=== PATIENT | female | born 1950 | race Caucasian/White ===

== ENCOUNTER 2020-04-27 10:48 | Emergency (ER) | payer MEDICARE, MEDICAID, SELFPAY ==
[2020-04-27 10:52] VITALS: BP 199/77; PULSE 97; RESP 18; TEMP 36.7; O2SAT 97
[2020-04-27 11:03] VITALS: BP 165/71
--- NOTE | 2020-04-27 11:31 | ED.GENADUL_ITS ---
Discharge Plan Disposition Patient Disposition: HOME Condition: Stable Discharge Details Chief Complaint: Laceration Clinical Impression: Laceration of leg Primary Care Provider: Von Gallegos ED Provider: Dougie Carlin Home Meds and New Rx's Prescriptions: Continued omeprazole 10 mg Capsule,Delayed Release(Dr/Ec) 10 mg PO DAILY RF: 0 Trelegy Ellipta 100-62.5-25 mcg Blister With Device 1 inh INHALATION DAILY RF: 0 Discharge Instructions Instructions: Laceration (ED) Additional Instructions: Keep the wound clean and dry. You may change antibiotic dressing daily. Rest, elevate, cool compresses every 2 hours for 20 minutes. Please watch for new or worsening symptoms and return to the ER for any concerns. I do recommend having the sutures removed in approximately 14 days. [id number] medications as directed for symptomatic control. Medical Decision Making 69-year-old female presents after a slip up the stairs striking her leg upon the stair sustaining a laceration. Denies striking her head or any other injuries. Denies numbness, tingling, weakness. Patient is able to bear weight. The laceration does not reveal any obvious foreign body or active bleeding. Tetanus status is not up-to-date. Will update tetanus today. Tetanus updated Laceration repaired, please see procedural note Laceration was then again cleaned and dressed. Patient was able to ambulate steadily. HPI General Mode of arrival: ambulatory . Date/Time Provider Initiated Documentation: 04/27/20 11:10 . Limitations to Documentation: no limitations . Information obtained by: patient . HPI Narrative: 69-year-old female who denies significant past medical history, presents for laceration of the left lower leg. She was walking up the stairs, missed a step, striking her leg directly against the stair edge. Reports the pain is mild at rest moderate with movement or bearing weight. Denies any other injury. Denies numbness, tingling, weakness. She is unaware of her last tetanus shot. She did not strike her head Related Data Home Medications Medication Instructions Recorded Confirmed Trelegy Ellipta 1 inh INHALATION DAILY 04/27/20 04/27/20 omeprazole 10 mg PO DAILY 04/27/20 04/27/20 Allergies Allergy/AdvReac Type Severity Reaction Status Date / Time No Known Allergies Allergy Unverified 04/27/20 11:17 General Stated Complaint: Laceration ROB: 3 Review of Systems Constitutional Constitutional: Denies headache(s) and Denies weakness ENT Ears, Nose, Mouth, and Throat: Denies headache(s) Musculoskeletal Musculoskeletal: Denies arthralgias, Denies numbness and Denies tingling Neurologic Neurologic: Denies headache(s), Denies numbness, Denies tingling and Denies weakness Exam Const General: cooperative, healthy appearing, comfortable and no acute distress Orientation: alert and awake HENPA Head: normal to inspection, normocephalic and atraumatic Mouth: moist mucous membranes Eyes Conjunctivae: conjunctivae normal Neck Neck: normal visual inspection, trachea midline and supple Resp Effort & Inspection: normal respiratory effort and able to speak in complete sentences Cardio Rate: regular rate Rhythm: regular rhythm Skin General skin exam: no rashes or lesions noted Neuro General: patient alert, patient awake, moves all extremities and no focal motor deficits Sensory Exam: no sensory deficits noted Extrem Upper/lower leg/hip images: 1. 9 cm V-shaped laceration. No active bleeding. No obvious foreign body. There is diffuse mild local discomfort to palpation associated with some ecchymosis. Neuro, vascular, tendon intact. Psych Appearance: grossly normal Mental Status: mental status grossly normal Course Vital Signs Vital signs: Vital Signs Temperature 36.7 C 04/27/20 10:52 Pulse 97 H 04/27/20 10:52 Respiratory Rate 18 04/27/20 10:52 Blood Pressure 199/77 H 04/27/20 10:52 Pulse Oximetry 97 04/27/20 10:52 Temperature 36.7 C 04/27/20 10:52 Temperature Source Skin 04/27/20 10:52 Pulse 97 H 04/27/20 10:52 Respiratory Rate 18 04/27/20 10:52 Respiratory Effort 04/27/20 11:00 Blood Pressure 165/71 H 04/27/20 11:03 Blood Pressure Position Sitting 04/27/20 10:52 Pulse Oximetry 97 04/27/20 10:52 Oxygen Delivery Method Room Air 04/27/20 10:52 Oxygen Flow Rate 0 04/27/20 10:52 Pain Level 4 04/27/20 11:20 Comment 04/27/20 10:52 Procedures Laceration Laceration 1: Site: lower extremity Side (If applicable): left Size (cm): 9 Description: other (V-shaped) Depth: simple, single layer Local Anesthetic: Lidocaine 2% and with Epi Amount of anesthesia used (mL): 8 Pre-repair: wound explored, irrigated extensively and deep structures intact Skin layer closed with: nylon Size (cm): 4-0 Number of sutures: 18 Technique: simple, interrupted
[2020-04-27] MEDS: Bacitracin 1 PACKET (12:40)
== END 2020-04-27 12:31 | disposition home or self-care (01) ==
PROVIDERS: Emergency Provider Physician Assistant; PCP Family Medicine
DX: S81.812A Laceration without foreign body, left lower leg, initial encounter (principal); W22.09XA Striking against other stationary object, initial encounter
CPT/HCPCS: 12004; 90471

== ENCOUNTER 2020-05-11 09:46 | Emergency (ER) | payer MEDICARE, MEDICAID, SELFPAY ==
[2020-05-11 09:50] VITALS: BP 157/89; PULSE 90; RESP 16; TEMP 35.9; O2SAT 97
--- NOTE | 2020-05-11 09:50 | ED.GENADUL_ITS ---
Discharge Plan Disposition Patient Disposition: HOME Condition: Good Discharge Details Chief Complaint: SutureRem Clinical Impression: Encounter for removal of sutures Primary Care Provider: Von Gallegos ED Provider: Lisette Wahl Home Meds and New Rx's Prescriptions: Continued omeprazole 10 mg Capsule,Delayed Release(Dr/Ec) 10 mg PO DAILY RF: 0 Trelegy Ellipta 100-62.5-25 mcg Blister With Device 1 inh INHALATION DAILY RF: 0 Discharge Instructions Instructions: Laceration (ED) Additional Instructions: She wound appears to be healing well. Sutures removed. Please continue to monitor wound for signs of infection bleeding redness, warmth, drainage, increased pain, fever/chills. If you develop these or other new/worsening s ymptoms please seek care urgently once again. Otherwise, please continue with the measures you have already been using to promote optimal wound healing. Referrals: Von Gallegos [Primary Care Provider] - Medical Decision Making Patient presents today for suture removal. He has been 14 days and sutures backslash left anterior tibia. Wound appears to be healing well without signs of infection. I do feel that sutures are able to be removed at this point. #18 sutures removed by myself. I did reinforce the wound again with Steri-Strips. W e discussed wound care again. Discussed the signs symptoms of infection to seek care urgently once again. Advise follow-up with primary if she has any questions or concerns regarding wound healing. All of her questions and concerns were addressed and she is in agreement this plan. HPI General Mode of arrival: ambulatory . Date/Time Provider Initiated Documentation: 05/11/20 09:50 . Limitations to Documentation: no limitations . Information obtained by: patient and RN notes reviewed . History of Present Illness 69 year old F presents to the emergency department with the chief c omplaint of suture removal, described as mild (feels that wound is healing well, no pain at this time), and is localized to the left and lower extremity. Patient reports no radiation. Patient started experiencing this week(s) (2) and it has been now resolved. No relieving factors improve symptom(s), No exacerbating factors reported . Patient notes no other symptoms.. Patient did receive the following treatments prior to arrival, other (sutures placed 2 weeks ago) Related Data Home Medications Medication Instructions Recorded Confirmed Trelegy Ellipta 1 inh INHALATION DAILY 04/27/20 05/11/20 omeprazole 10 mg PO DAILY 04/27/20 05/11/20 Allergies Allergy/AdvReac Type Severity Reaction Status Date / Time No Known Allergies Allergy Unverified 05/11/20 09:53 General ROB: 3 Review of Systems Constitutional Constitutional: Reports as per HPI, Denies chills, Denies fever(s) and Denies weakness Musculoskeletal Musculoskeletal: Reports as per HPI and Denies tingling Integumentary/Breasts Skin/Breast: Reports as per HPI Neurologic Neurologic: Denies sensory deficit, Denies tingling and Denies weakness [facility] Social History Do you feel safe at home: Yes Do you feel safe in your relationship?: Yes Exam Const General: cooperative, healthy appearing, comfortable, no acute distress and well developed Nutritional Appearance: average body habitus and well nourished Orientation: alert and awake Resp Effort & Inspection: normal respiratory effort, able to speak in complete sentences and no respiratory distress Cardio Rate: regular rate Rhythm: regular rhythm Skin Trauma: laceration (as below) Neuro General: patient alert and patient awake Cognition: normal cognition Speech: speech normal Gait: normal gait Motor: muscle tone normal throughout Extrem Upper/lower leg/hip images: 1. Wound appears to be healing well with no surrounding erythema, warmth drainage. Scab along suture edges. Psych Appearance: grossly normal and well kempt Mental Status: mental status grossly normal Speech and Movement: speech and movement normal
== END 2020-05-11 10:09 | disposition home or self-care (01) ==
PROVIDERS: Emergency Provider Physician Assistant; PCP Family Medicine
DX: S81.812D Laceration without foreign body, left lower leg, subsequent encounter (principal); W22.09XD Striking against other stationary object, subsequent encounter; Z48.02 Encounter for removal of sutures

== ENCOUNTER 2020-09-24 09:05 | Day surgery (SDC) | payer MEDICARE, MEDICAID, SELFPAY ==
[2020-09-24] MEDS: Tropicam./Phenyleph. (1/2.5%) 5 ML BTL OD ×3 (10:19→10:31)
[2020-09-24 10:20] VITALS: BP 139/85; PULSE 79; RESP 24; TEMP 36.4; O2SAT 95
[2020-09-24] MEDS: Povidone-Iodine Ophth 30 ML BTL ×2 (11:13→11:37)
[2020-09-24] MEDS: Tetracaine 0.5% 4 ML BTL OD (11:13)
[2020-09-24] MEDS: Lidocaine 2% Jelly 6 ML SYR (11:13)
[2020-09-24] MEDS: Lidocaine 1% Pres-Free 5 ML VIAL (11:19)
[2020-09-24] MEDS: Balanced Salt Soln.-PLUS 500 ML BAG (11:19)
[2020-09-24] MEDS: Duovisc Viscoelastic System EACH 1 EACH (11:19)
--- NOTE | 2020-09-24 11:44 | ROE_ITS ---
Date of service: 09/24/20 Time of Service: 11:44 Operative Note Operative Note DATE OF PROCEDURE: 09/24/20 PRE-OP DIAGNOSIS: Nuclear cataract, right eye POST-OP DIAGNOSIS: same PROCEDURE: Cataract extraction using phacoemulsification with intraocular lens implant, right eye SURGEON: Damon Cuevas ANESTHESIA: MAC and local (sub-tenon's anesthetic infiltration) ESTIMATED BLOOD LOSS: 0 PATHOLOGY: none sent COMPLICATIONS: None Patient was transported to: same day Patient's condition: stable Implants: [employer] / [employer] Tecnis ZCB00 intr aocular lens Indications: Progressive decreased vision due to cataract, right eye Procedure Description: CATARACT SURGERY OPERATIVE REPORT PREOPERATIVE DIAGNOSIS: Nuclear cataract, right eye POSTOPERATIVE DIAGNOSIS: Same OPERATION: Cataract extraction using phacoemulsification with posterior chamber intraocular lens implant, right eye. IOL: IOL Health Policy Nurse/Model: [employer] Vision / SHERYL Tecnis ZCB00 IOL Power: + 21.50 diopters IOL Serial Number: [id number] Optic Diameter: 6.0mm Haptic/Overall Diameter: 13.0mm PHACO INFO: [employer]urion Vision System with OZil and Active Fluidics Cumulative Dispersed Energy (CDE): 13.82 seconds SURGEON: Damon Cuevas MD, KENDRICK ANESTHESIA: Monitored Anesthesia Care (MAC), with local sub-tenon's anesthetic infiltration COMPLICATIONS: None SPECIMENS: None INDICATIONS FOR PROCEDURE: The patient is a 69-year-old lady with history of diminished visual acuity in her right eye. She is noted to have a significant nuclear cataract in the right eye. The option of cataract surgery was offered to the patient and she wished to proceed. PROCEDURE: The correct surgical eye was identified and marked as the right eye and the pupil was dilated in the preoperative area using mydriatics and cycloplegics. The dilated pupil size was 6.5 mm. Oral sedation was administered in the form of an Imprimis MKO Melt (midazolam 3mg/ketamine 25mg/ondansetron 2mg). The patient was brought to the operating room where cardiopulmonary monitoring was instituted and surgical time-out was performed, confirming the correct operative eye and IOL power. Topical anesthesia was administered and ophthalmic povidone-iodine 5% was inst illed into the conjunctival fornices. Lidocaine gel was applied to the cornea and the isabella-ocular area was prepped with Betadine 10% solution and draped in the usual sterile fashion for intraocular surgery, including an aperture drape. A Tegaderm transparent film dressing was cut in half and used to cover the lashes and lid margins. Care was taken to sequester the lashes and lid margins under the Tegaderm dressing. A lid speculum was placed between the lids of the operative eye and the Jude-Elie operating microscope was maneuvered into position. Roderick scissors were then used to make a conjunctival buttonhole approximately 6mm posterior to the limbus in the inferonasal quadrant. Blunt dissection was carried out to expose bare sclera, and a blunt-tipped sub-tenon?s anesthesia cannula was introduced and passed posteriorly along the globe where non- preserved plain lidocaine was injected into posterior sub-Tenon?s space. A sideport knife was used to make a paracentesis port inferiortemporally. Intraocular phenylephrine/lidocaine was injected into the anterior chamber. The anterior chamber was then filled with viscoelastic. A 2.4mm keratome knife was used to create a half-thickness groove at the limbus and then to construct a three-plane near-clear corneal tunnel extending 2.0mm into clear cornea in the superiortemporal position. . A flap was raised on the anterior capsule and capsulorhexis forceps were used to complete a continuous curvilinear capsulorhexis of 5.0 mm. Balanced salt solution was then used to perform cortical cleaving hydrodissection and nuclear hydrodelineation until the lens could be freely rotated within the capsular bag. The lens nucleus was then disassembled and removed within the capsular bag and iris plane using phacoemulsification. Res idual cortical material was removed using the I/A handpiece. The posterior capsule was carefully polished to remove as much residual lens epithelial cells as safely possible. The capsular bag was then inflated and the anterior chamber deepened with viscoelastic. The lens implant described above was inserted into the capsular bag using the SHERYL [place] Injector. A Kuglen hook was used to dial the IOL into position. Residual viscoelastic was then removed first from posterior to the IOL, then from the anterior chamber using the I/A handpiece. The lens implant was noted to center nicely within the capsular bag. The incisions were stromally hydrated, and the anterior chamber was reformed using BSS. Then 0.1cc of moxifloxacin 5.0mg/ml were injected into the capsular bag and anterior chamber. The incisions were checked with a Weck spear and found to be secure. Several drops of ophthalmic povidone-iodine 5% were then applied to the eye followed by two drops of Imprimis combination prednisolone/moxifloxacin/nepafenac solution. The drapes were removed and a clear plastic protective eye shield was placed over the eye. The patient was then returned to Same Day Surgery in stable condition.
--- NOTE | 2020-09-24 11:44 | PDOC.DSDIS_ITS ---
Discharge Plan Discharge Details Attending Provider: Damon Cuevas Primary Care Provider: Von Gallegos [place] Meds and New Rx's Prescriptions: No Action Trelegy Ellipta 100-62.5-25 mcg Blister With Device 1 inh INHALATION DAILY RF: 0 nystatin 100,000 unit/mL Suspension 5 ml PO QID RF: 0 ipratropium-albuterol 0.5 mg-3 mg(2.5 mg base)/3 mL Solution For Nebulization 3 ml INHALATION Q4H RF: 0 magnesium oxide 400 mg (241.3 mg magnesium) Tablet 400 mg PO DAILY RF: 0 albuterol sulfate [Ventolin HFA] 90 mcg/actuation Hfa Aerosol Inhaler 2 puff INHALATION QID PRNRF: 0 naproxen 500 mg Tablet 500 mg PO BID RF: 0 omeprazole 20 mg Tablet,Delayed Release (Dr/Ec) 20 mg PO DAILY RF: 0 halobetasol propionate 0.05 % Ointment 1 applic TOPICAL DIRECTED RF: 0 Discharge Instructions Stand Alone Forms: Post-op Topical Cataract DS: Diagnosis Discharge Diagnosis (1) Nuclear sclerotic cataract of right eye: Status: Resolved
[2020-09-24 12:12] VITALS: BP 142/64; PULSE 84; RESP 20; TEMP 36.4; O2SAT 93
== END 2020-09-24 12:15 ==
LOC: SUR 09:05
PROVIDERS: PCP Family Medicine; Visit Provider Ophthalmology
PROC: (CPT 66984; principal; 2020-09-24 11:45)
DX: H25.11 Age-related nuclear cataract, right eye (principal); J44.9 Chronic obstructive pulmonary disease, unspecified; Z99.81 Dependence on supplemental oxygen; K21.9 Gastro-esophageal reflux disease without esophagitis
CPT/HCPCS: 66984; V2632

== ENCOUNTER 2020-10-08 06:11 | Day surgery (SDC) | payer MEDICARE, MEDICAID, SELFPAY ==
[2020-10-08 06:20] VITALS: BP 132/71; PULSE 75; RESP 22; TEMP 36.4; O2SAT 93
[2020-10-08] MEDS: Tropicam./Phenyleph. (1/2.5%) 5 ML BTL OS ×3 (06:37→06:48)
[2020-10-08] MEDS: Povidone-Iodine Ophth 30 ML BTL (07:27)
[2020-10-08] MEDS: Tetracaine 0.5% 4 ML BTL OS (07:28)
[2020-10-08] MEDS: Lidocaine 2% Jelly 6 ML SYR (07:28)
[2020-10-08] MEDS: Balanced Salt Soln.-PLUS 500 ML BAG (07:31)
[2020-10-08] MEDS: Duovisc Viscoelastic System EACH 1 EACH (07:31)
[2020-10-08] MEDS: Lidocaine 1% Pres-Free 5 ML VIAL (07:31)
--- NOTE | 2020-10-08 07:55 | W.PM.DSUDISC ---
Discharge Plan Disposition Patient Disposition: HOME Condition: Good Discharge Details Attending Provider: Damon Cuevas Primary Care Provider: Von Gallegos [place] Meds and New Rx's Prescriptions: No Action Trelegy Ellipta 100-62.5-25 mcg Blister With Device 1 inh INHALATION DAILY RF: 0 ipratropium-albuterol 0.5 mg-3 mg(2.5 mg base)/3 mL Solution For Nebulization 3 ml INHALATION Q4H RF: 0 magnesium oxide 400 mg (241.3 mg magnesium) Tablet 400 mg PO DAILY RF: 0 albuterol sulfate [Ventolin HFA] 90 mcg/actuation Hfa Aerosol Inhaler 2 puff INHALATION QID PRNRF: 0 naproxen 500 mg Tablet 500 mg PO BID RF: 0 omeprazole 20 mg Tablet,Delayed Release (Dr/Ec) 20 mg PO DAILY RF: 0 halobetasol propionate 0.05 % Ointment 1 applic TOPICAL DIRECTED RF: 0 Discharge Instructions Stand Alone Forms: Post-op Topical Cataract, [place] ([facility]) Discharge Orders Discharge Orders: Discharge Order (Routine); Ordered 10/08/20 Ordered By: Damon Cuevas DS: Diagnosis Discharge Diagnosis (1) Nuclear sclerotic cataract of left eye: Status: Resolved
--- NOTE | 2020-10-08 07:56 | W.PM.OP ---
Date of service: 10/08/20 Time of Service: 07:57 Operative Note Operative Note DATE OF PROCEDURE: 10/08/20 PRE-OP DIAGNOSIS: Nuclear cataract, left eye POST-OP DIAGNOSIS: same PROCEDURE: Cataract extraction using phacoemulsification with intraocular lens implant, left eye SURGEON: Damon Cueavs ANESTHESIA: MAC and local (sub-tenon's anesthetic infiltration) PATHOLOGY: none sent COMPLICATIONS: None Patient was transported to: same day Patient's condition: stable Implants: [employer] / [employer] Tecnis ZCB00 Indications: Progressive decreased vision due to cataract, left eye Procedure Description: CATARACT SURGERY OPERATIVE REPORT PREOPERATIVE DIAGNOSIS: Nuclear cataract, left eye POSTOPERATIVE DIAGNOSIS: Same OPERATION: Cataract extraction using phacoemulsification with posterior chamber intraocular lens implant, left eye. IOL: IOL Wader Boot Top Assembler/Model: J&J Vision / SHERYL Tecnis ZCB00 IOL Power: + 21.50 diopters IOL Serial Number: [id number] Optic Diameter: 6.0mm Haptic/Overall Diameter: 13.0mm PHACO INFO: Bob [employer] Mobile [employer] Vision System with OZil and Active Fluidics Cumulative Dispersed Energy (CDE): 10.73 seconds SURGEON: Damon Cuevas MD, KENDRICK ANESTHESIA: Monitored Anesthesia Care (MAC), with local sub-tenon's anesthetic infiltration COMPLICATIONS: None SPECIMENS: None INDICATIONS FOR PROCEDURE: The patient is a 69-year-old lady with history of diminished visual acuity and both eyes secondary to the development of bilateral nuclear cataracts. The option of cataract surgery was offered to the patient and she wished to proceed. She has already undergone cataract surgery in the right eye and is doing well postoperatively. She now presents for cataract surgery of the left eye. PROCEDURE: The correct surgical eye was identified and marked as the left eye and the pupil was dilated in the preoperative area using mydriatics and cycloplegics. The dilated pupil size was 7.0 mm. Oral sedation was administered in the form of an Imprimis MKO Melt (midazolam 3mg/ketamine 25mg/ondansetron 2mg). The patient was brought to the operating room where cardiopulmonary monitoring was instituted and surgical time-out was performed, confirming the correct operative eye and IOL power. Topical anesthesia was administered and ophthalmic povidone-iodine 5% was instilled into the conjunctival fornices. Lidocaine gel was applied to the cornea and the isabella-ocular area was prepped with Betadine 10% solution and draped in the usual sterile fashion for intraocular surgery, including an aperture drape. A Tegaderm transparent film dressing was cut in half and used to cover the lashes and lid margins. Care was taken to sequester the lashes and lid margins under the Tegaderm dressing. A lid speculum was placed between the lids of the operative eye and the Jude-Elie operating microscope was maneuvered into position. Roderick scissors were then used to make a conjunctival buttonhole approximately 6mm posterior to the limbus in the inferonasal quadrant. Blunt dissection was carried out to expose bare sclera, and a blunt-tipped sub-tenon?s anesthesia cannula was introduced and passed posteriorly along the globe where non-preserved plain lidocaine was injected into posterior sub-Tenon?s space. A sideport knife was used to make a paracentesis port superior/superiortemporally. Intraocular phenylephrine/lidocaine was injected into the anterior chamber. The anterior chamber was then filled with viscoelastic. A 2.4mm keratome knife was used to create a half-thickness groove at the limbus and then to construct a three-plane near-clear corneal tunnel extending 2.0mm into clear cornea in the temporal position. . A flap was raised on the anterior capsule and capsulorhexis forceps were used to complete a continuous curvilinear capsulorhexis of 5.0 mm. Balanced salt solution was then used to perform cortical cleaving hydrodissection and nuclear hydrodelineation until the lens could be freely rotated within the capsular bag. The lens nucleus was then disassembled and removed within the capsular bag and iris plane using phacoemulsification. Residual cortical material was removed using the 45-degree angled silicone I/A tip with 0.3mm port. The posterior capsule was carefully polished to remove as much residual lens epithelial cells as safely possible. The capsular bag was then inflated and the anterior chamber deepened with viscoelastic. The lens implant described above was inserted into the capsular bag using the SHERYL [place] Injector. A Kuglen hook was used to dial the IOL into position. Residual viscoelastic was then removed first from posterior to the IOL, then from the anterior chamber using the I/A handpiece. The lens implant was noted to center nicely within the capsular bag. The incisions were stromally hydrated, and the anterior chamber was reformed using BSS. Then 0.5cc of moxifloxacin 1.0mg/ml were injected into the capsular bag and anterior chamber. The incisions were checked with a Weck spear and found to be secure. Several drops of ophthalmic povidone-iodine 5% were then applied to the eye followed by two drops of Imprimis combination prednisolone/moxifloxacin/nepafenac solution. The drapes were removed and a clear plastic protective eye shield was placed over the eye. The patient was then returned to Same Day Surgery in stable condition.
[2020-10-08 08:19] VITALS: BP 124/69; PULSE 82; RESP 16; TEMP 37; O2SAT 94
== END 2020-10-08 08:26 | disposition home or self-care (01) ==
PROVIDERS: PCP Family Medicine; Visit Provider Ophthalmology
PROC: (CPT 66984; principal; 2020-10-08 07:30)
DX: H25.12 Age-related nuclear cataract, left eye (principal); Z98.41 Cataract extraction status, right eye; Z96.1 Presence of intraocular lens; J44.9 Chronic obstructive pulmonary disease, unspecified; Z99.81 Dependence on supplemental oxygen; K21.9 Gastro-esophageal reflux disease without esophagitis
CPT/HCPCS: 66984; V2632